=== PATIENT | male | born 1980 | race Caucasian/White ===

== ENCOUNTER 2025-02-17 23:34 | Emergency (ER) | payer OTHER, SELFPAY ==
[2025-02-17 23:35] VITALS: BP 170/126
[2025-02-17 23:44] VITALS: BP 158/91
--- NOTE | 2025-02-17 23:53 | ED.GENMED ---
History of Present Illness
<Sherie Gant PA-C - Last Filed: 02/18/25 01:25>
General
Chief Complaint: Abdominal Pain
Source: patient
Exam Limitations: none
Time Seen by Provider: 02/17/25 23:39
History of Present Illness
History of Present Illness:
44yoM with a history of obesity presenting with his for evaluation of abdominal pain. Patient reports right-sided abdominal discomfort that started 2 days ago. Pain initially woke him up from sleep and has been constant since then. Pain is
waxing and waning and worsens with movement and coughing. No prior history of similar pains in the past. He has been taking ibuprofen with some relief. He is otherwise asymptomatic and denies any flank pain, testicular pain, fevers, difficulty
urinating, constipation, diarrhea, nausea, vomiting. Last bowel movement was earlier today which was normal. No prior abdominal surgeries. Of note, patient finished a course of prednisone about a week ago for an allergic reaction.
Past History
<Sherie Gant PA-C - Last Filed: 02/18/25 01:25>
Past History
ED Past Medical History: None
Social History
Personal:
Living: with family
Employment: Employed
Review of Systems
<Tere Melton PA-C - Last Filed: 02/18/25 02:16>
Review of Systems
All Other Systems: ROS reviewed and negative except as documented in HPI and ROS
Phy Exam
<Sherie Gant PA-C - Last Filed: 02/18/25 01:25>
General Physical Exam
General Presentation: well appearing and no apparent distress
General Skin: warm and dry
General Habitus: normal
General Mental: alert
ENT Exam
ENT Exam: normocephalic
Pulmonary Exam
Pulmonary Exam: no respiratory distress
Gastrointestinal Exam
Gastrointestinal Exam: soft, non distended and other (+Tenderness to R mid abdomen. Abdomen soft. No guarding or rebound. Negative Browne's sign.)
Neurological Exam
Neurological Exam: alert
[place] Coma Scale
Eye Opening: Spontaneous
Verbal Response: Oriented
Motor Response: Obeys Commands
GCS Total Score: 15
Skin Exam
Skin Exam: normal color and warm/dry
Psychiatric Exam
Psychiatric Exam: normal mood/affect
<Tere Melton PA-C - Last Filed: 02/18/25 02:16>
[place] Coma Scale
GCS Total Score: 15
Course
<Sherie Gant PA-C - Last Filed: 02/18/25 01:25>
Orders/Labs/Results
Orders:
Orders
02/17/25 23:51
Complete Blood Count/With Diff Urgent
Comprehensive Metabolic Panel Urgent
Lipase Urgent
02/18/25 00:01
CT Abd/pelvis W Iv Cont Urgent
Reason For Exam: R sided abd pain
Abnormal Lab Results
02/18/25
00:02
Absolute Monos (auto) 0.9 H 10^3/uL
(0.1-0.6)
Lymphocytes % 17.8 L %
(20.5-51.1)
Monocytes % 10.7 H %
(1.7-9.3)
Glucose 134 H mg/dl
(70-99)
02/18/25 00:02
02/18/25 00:02
Vital Signs
Initial and Last Documented VS:
Initial Vital Signs
Temp Pulse Resp BP Pulse Ox
98.5 F 94 22 170/126 96
02/17/25 23:35 02/17/25 23:35 02/17/25 23:35 02/17/25 23:35 02/17/25 23:35
Last Documented Vital Signs
Temp Pulse Resp BP Pulse Ox
98.5 F 85 15 158/90 95
02/17/25 23:35 02/18/25 00:45 02/18/25 00:45 02/18/25 00:00 02/18/25 00:45
<Tere Melton PA-C - Last Filed: 02/18/25 02:16>
Orders/Labs/Results
Orders:
Orders
02/17/25 23:51
Complete Blood Count/With Diff Urgent
Comprehensive Metabolic Panel Urgent
Lipase Urgent
02/18/25 00:01
CT Abd/pelvis W Iv Cont Urgent
Reason For Exam: R sided abd pain
Abnormal Lab Results
02/18/25
00:02
Absolute Monos (auto) 0.9 H 10^3/uL
(0.1-0.6)
Lymphocytes % 17.8 L %
(20.5-51.1)
Monocytes % 10.7 H %
(1.7-9.3)
Glucose 134 H mg/dl
(70-99)
02/18/25 00:02
02/18/25 00:02
Vital Signs
Initial and Last Documented VS:
Initial Vital Signs
Temp Pulse Resp BP Pulse Ox
98.5 F 94 22 170/126 96
02/17/25 23:35 02/17/25 23:35 02/17/25 23:35 02/17/25 23:35 02/17/25 23:35
Last Documented Vital Signs
Temp Pulse Resp BP Pulse Ox
98.5 F 85 15 158/90 95
02/17/25 23:35 02/18/25 00:45 02/18/25 00:45 02/18/25 00:00 02/18/25 00:45
<Sherie Gant PA-C - Last Filed: 02/18/25 01:25>
MDM/Problems Addressed
Differential Diagnosis Includes:
44yoM here with R sided abd pain x 2 days. Worsens with movement. Otherwise asymptomatic. He is hypertensive in triage with otherwise normal vital signs. He is nontoxic-appearing. No signs of peritonitis on abdominal exam. Differential diagnosis
includes but is not limited to: Appendicitis, colitis, biliary colic, cholecystitis, kidney stone, musculoskeletal
Initial ED plan: Check abdominal labs and CT abdomen. He declines analgesics.
Final assessment: Labs unremarkable including normal white count, renal function, LFTs, and lipase. Case signed out to Tere Melton PA-C pending CT results.
<Sherie Gant PA-C - Last Filed: 02/18/25 01:25>
*Pulse Oximetry
SaO2: 96
Oxygen Mode of Delivery: Room air
<Tere Melton PA-C - Last Filed: 02/18/25 02:16>
*Pulse Oximetry
Patient hypoxic: no
*Critical Care Note
Total Time (30-74mins, 75-104mins- exclusive of procedures): Not Applicable
<Tere Melton PA-C - Last Filed: 02/18/25 02:16>
Update Note
Update Note:
Update
I received patient in signout
Patient on my exam is well-appearing in no acute distress
His blood pressure has come down
CBC and CMP unremarkable
CT scan unremarkable
Discussed follow-up with PCP and strict return precautions
ED Attending Note
<Sherie Gant PA-C - Last Filed: 02/18/25 01:25>
-
Portions of this chart may have been created with voice recognition software.� Occasional wrong word or��sound alike� substitutions may have occurred due to the inherent limitations of voice recognition software.
Discharge Plan
Departure
Patient Disposition: Home (Routine Discharge)
Date of Disposition: 02/18/25
Time of Disposition: 02:13
Patient with high blood pressure during this ER visit?: Yes
Condition: Good
Discharge Problem:
Abdominal pain
Instructions: Abdominal Pain, BLOOD PRESSURE
Prescriptions:
No Action
tramadol 50 MG tablet
50 mg PO Q6HPRN PRN (Reason: pain) Qty: 20 0RF
Referrals:
Dao Maria DO [[facility]] - Call in 1-3 days for appt
NONE,* [Family Provider, Internal Medicine]
Activity Restrictions/Additional Instructions:
Please call attached number to establish care with primary care provider. Please continue to monitor your symptoms. As discussed, your CT scan did not show any evidence of acute abnormality in the abdomen or pelvis.
PLEASE RETURN TO ER SHOULD YOU DEVELOP RECTAL BLEEDING, DARK TARRY STOOLS, FEVERS OR CHILLS, INTRACTABLE NAUSEA OR VOMITING, OR ANY OTHER SIGNS OR SYMPTOMS WORRISOME TO YOU.
Interventions
Interventions:
*Risk Screen - Suicide Last Done: 02/17/25 23:35
*General Assessment Last Done: 02/18/25 00:00
*Neglect/Abuse Screening Last Done: 02/17/25 23:35
*ED COVID-19 Vaccine History Last Done: 02/18/25 00:00
*ED Influenza Vaccine History Last Done: 02/18/25 00:00
[facility] Risk Assessment Tool Last Done: 02/18/25 00:00
IE-Auxbmt-Nfyilaifoe Assessment Last Done: 02/18/25 00:00
Discharge Date and Time
Print Language: KOSOVAN
[2025-02-18] VITALS: BP 158/90; BMI 53.2
[2025-02-18 00:25] LABS: Hematocrit 42.9 % (39.0-52.0); Hemoglobin 14.7 g/dL (13.0-18.0); Mean Corp Hgb Conc. 34.3 g/dL (33.0-37.0); Mean Corpuscular Volume 88.6 fL (80.0-94.0); Nucleated Red Blood Cells % 0 % (-); Platelet Count 198 10^3/uL (130-400); Red Cell Dist. Width 12.2 % (11.5-14.5)
[2025-02-18 00:34] LABS: ALT (SGPT) 31 U/L (0-50); AST (SGOT) 25 U/L (17-59); Albumin 4.3 g/dl (3.5-5.0); Alkaline Phosphatase 107 U/L (38-126); Blood Urea Nitrogen 18 mg/dl (9-20); Calcium 8.8 mg/dl (8.4-10.2); Carbon Dioxide 24 mmol/L (22-30); Chloride 106 mmol/L (98-107); Estimated Creatinine Clearance > 125 ml/min; Glucose 134 mg/dl (70-99); Lipase 77 U/L (23-300); Potassium 4.1 mmol/L (3.5-5.1); Sodium 138 mmol/L (135-145); Total Protein 6.5 g/dl (6.3-8.2); eGFR > 60.00
[2025-02-18 02:21] VITALS: BP 150/84
== END 2025-02-18 02:28 | disposition home or self-care (01) ==
LOC: EMR 23:34
PROVIDERS: Physician Assistant; EMERGENCY PHYSICIAN Student in an Organized Health Care Education/Training Program
DX: R10.9 Unspecified abdominal pain (principal); E66.9 Obesity, unspecified
CPT/HCPCS: 99284; 74177; 80053; 83690; 85025; Q9967